=== PATIENT | female | born 1955 | race Caucasian/White ===

== ENCOUNTER 2016-03-03 06:13 | Inpatient (IN) | payer OTHER ==
[~2016-03-03] VITALS: Ht 167.6 cm; Wt 71.0 kg
[2016-03-03] VITALS (15 sets, daily range): BP systolic 107–160; BP diastolic 60–88; PULSE 75–95; RESP 4–17; O2SAT 93–100
[2016-03-03] MEDS: Lactated Ringer's 1,000 ML IV SCH ×4 (05:00→09:59)
[~2016-03-03 06:13] MED LIST: CYCL10TA9 PO; CeFAZolin 2 Gm/50 mL D5W IV Premix IV ONE; FOLI-52 PO; LEVO750T39 PO; METR500T19 PO; NITR0.4T6 SL; TRAM50TA2 PO; metroNIDAZOLE Inj 500 MG in IV Premix 1 EACH IV ONE
[2016-03-03] MEDS ORDERED: Ondansetron 2 mg/mL 2 mL Inj ONE ×2 (06:39→16:39)
[2016-03-03] MEDS ORDERED: Ondansetron 2 mg/mL 2 mL Inj IVPUSH ONE (08:20)
--- NOTE | 2016-03-03 08:28 | PCM.HPANE ---
Patient Data Surgeon Admitting Provider: Attending Provider:Kristi Viveros MD Primary Care Physician:Maged Guzman MD Other Provider: Reason for Visit Diverticulitis Ht/WT & BMI Height (Feet): 5 Height (Inches): 6 Weight (Kilograms): 70.6 Body Mass Index 25.00 Allergies Coded Allergies: latex (Verified Allergy, Intermediate, rash/blisters, 04/16/15) Cultivated Oat Pollen (Verified Allergy, Unknown, 03/02/16) TAPE (Verified Allergy, Unknown, 03/02/16) Past Anesthesia History Anesthesia History: Positive for:: Anesthesia Reactions (NAUSEATED), Denies:: Abnormal Airway, Difficult Intubation, Fam Anesthesia Reaction, Fam Malignant Hypertherm, Malignant Hyperthermia Diabetes History Hx Diabetes?: No MRSA MRSA: Yes Medications Home Meds Incl Beta Lui: No Reported Medications Tramadol 50 Mg Opwyvr99 Mg PO Q4H PRN For Pain Ref 0 03/02/16 Metronidazole 500 Mg Nmutlz427 Mg PO TID Ref 0 03/02/16 Nitroglycerin SL 0.4 Mg Tab.subl0.4 Mg SL 03/02/16 Levofloxacin 750 Mg Xpkrjr814 Mg PO DAILY 03/02/16 Multivitamin/Iron/Folic Acid (Centrum Complete Multivit Tab)1 Each Tablet1 Each PO DAILY 04/16/15 Cyclobenzaprine 10 Mg Trhvbx63 Mg PO TID PRN Spasm 01/14/15 Discontinued Reported Medications Tizanidine 4 Mg Tablet4 Mg PO TID 03/02/16 hydrOXYzine Hcl (HydrOXYzine Hcl)25 Mg Rlixna75 Mg PO TID PRN For Itching Ref 0 03/02/[address] 40 Mg Tablet.dr40 Mg PO BID Ref 0 04/16/15 HydrOXYzine HCl 10 Mg Ofipmx05 Mg PO TID PRN For Itching Ref 0 04/16/15 Dicyclomine (Bentyl)10 Mg Ndtlghp90 Mg PO 04/16/15 Trazodone 50 Mg Gtbrvf47 Mg PO HS Ref 0 01/14/15 Omeprazole 20 Mg Capsule.dr20 Mg PO DAILY Ref 0 01/14/15 Nitroglycerin 0.4 mg/hr Patch 1 Each Patch0.4 Mg TRANSDERM DAILY 01/14/15 History History of ENT Problems?: No HEENT History: Denies:: Abnormal Airway Difficult Intubation Dysphagia Hearing Problem Other History/Comment No recent palpitations. Reports h/o paroxysmal cardiac palpitations that do not stop her activity and resolve spontaneously Hx of Heart Problems?: Yes Cardiovascular History: Positive for:: Coronary Artery Disease (HYPERLIPEDEMIA ) Irregular Heartbeat (HX PALPATATIONS, RULED OUT TO BE BENIGN) Denies:: AICD Atrial Fibrillation Chest Pain Hypertension Pacemaker Valvular Heart Disease Hx of Respiratory Problem?: No Respiratory History: Denies:: Asthma COPD Cough Hemoptysis Pneumonia Tuberculosis Neurological History: Positive for:: Dizziness (ONCE IN A WHILE) Denies:: CVA Hx of GI Problems?: Yes Gastrointestinal History: Positive for:: Diverticulitis Gastroesphageal Reflux Hiatal Hernia Denies:: Cirrhosis Rectal Bleeding Hx of Problems?: Yes Female Hx: Positive for:: Endometriosis (UTERINE FIBROID) Denies:: Currently Problems with Breasts? Skin History: Denies:: History Skin Disorders? Pressure Ulcers Hx Musculoskeletal Problems?: Yes Musculoskeletal History: Positive for:: Degenerative Joint (INTERVERTEBRAL DISC DISORDER) Fibromyalgia Musculoskeletal Trauma (TROCHANTERIC BURSITIS) Denies:: Joint Replacement Psycho Social History: Denies:: Anxiety Hx Depression Hx Surgeries?: Yes (HERNIA REPAIR, Schotsky's ring stretched x2, acid reflux surgery) Hx Any Other Health Problems?: Yes Other History: Denies:: Cancer History Blood Transfusions: Positive for:: Accept Blood Products? Denies:: Blood Transfusions Hx Diabetes: No Hx Alcohol Use: No Smoking Status: Never Smoker Stop/Bang S-Snoring: Do You Snore Loudly: No T-Tired: feel tired, fatigued: No O-Obsered: Observed not breath: Yes P-Blood Pressure: treated: No B- Body Mass Index > 35 kg/m2: No A- Age over 50: Yes N- Neck Large Circumference: No G- Gender Male: No DORIS Total Score: 2 DORIS Risk Assessment: Low Risk, <3 Yes Risk Assessment Category Category 1A: Patient has history of documented sleep apnea, and HAS NOT received any narcotic, sedative or anesthesia administration during this stay. Category 1B: Patient has history of documented sleep apnea, and HAS received any narcotic , sedative or anesthesia administration during this stay Category 2: Patient has SUSPECTED Obstructive Sleep Apnea, and HAS received any narcotic , sedative or anesthesia administration during this stay. Category 3: Patient has SUSPECTED Obstructive Sleep Apnea and HAS NOT received narcotic, sedative or anesthesia administration during this stay. Category 4: Outpatient in Procedural Areas with known sleep apnea or who screen positive for High Risk via the STOP/BANG questionnaire. Exam Exam Vital Signs Vital Signs Date Time Temp Pulse Resp B/P Pulse Ox O2 Delivery O2 Flow Rate FiO2 03/03/16 07:01 35.3 75 16 129/79 100 Room Air General Appearance: Alert, Oriented X3, Cooperative, No Acute Distress HEENT/AIRWAY: MP 1 Lungs: Normal Air Movement Heart: Exam Unremarkable Meds/Labs/Diagnostics Admission Meds Current Medications Lactated Ringer's (Lr) 1,000 ml @ 120 mls/hr Q8H20M IV Last administered on 06:18; Start 03/03/16 at 05:00; Stop 03/03/16 at 13:19 Gabapentin (Neurontin) 600 mg PREOP ONCE PO Last administered on 03/03/16 07: 11; Start 03/03/16 at 06:00; Stop 03/03/16 at 06:01; Status DC Celecoxib (CeleBREX) 200 mg PREOP ONCE PO Last administered on 03/03/16 07:11 ; Start 03/03/16 at 06:00; Stop 03/03/16 at 06:01; Status DC Scopolamine (Transderm-Scop Patch) 1.5 mg ONCE ONCE TOPICAL Last administered on 03/03/16 06:45; Start 03/03/16 at 05:00; Stop 03/03/16 at 05:01; Status DC Acetaminophen (Tylenol) 650 mg PREOP ONCE PO Last administered on 03/03/16 07 :11; Start 03/03/16 at 06:00; Stop 03/03/16 at 06:01; Status DC Ondansetron HCl (Zofran Inj) 4 mg STK-MED ONCE .ROUTE Last administered on 03/03 06:54; Start 03/03/16 at 06:39; Stop 03/03/16 at 06:40; Status DC Plan Impression Patient chart reviewed, patient interviewed and anesthestic plan with risks, benefits, and alternatives discussed, and informed consent obtained. NPO Status: 03/01/16 ASA Physical Status: ASA2 Mod Systemic Disease Anesthetic Plan: GA Bene/Risks/Altern/Consents: Yes HP Complete Prior to Induction: Yes Esequiel Astudillo MD Mar 03, 2016 08:28
[2016-03-03] MEDS ORDERED: Bupivacaine-MPF 0.5% W/EPI 30 mL Inj INFILTRATE ONE (09:02)
[2016-03-03] MEDS ORDERED: Lactated Ringer's 500 ML IV PRN (09:09)
[2016-03-03] MEDS ORDERED: Lactated Ringer's 1,000 ML IV SCH (09:09)
[2016-03-03] MEDS ORDERED: Dexamethasone 4 mg/mL Inj IVPUSH PRN (09:10)
[2016-03-03] MEDS ORDERED: EPHEDrine Sulfate 50 mg/mL Inj IVPUSH PRN (09:10)
[2016-03-03] MEDS ORDERED: EPHEDrine Sulfate 50 mg/mL Inj IM PRN (09:10)
[2016-03-03] MEDS ORDERED: Atropine 0.4 mg/mL Inj IVPUSH PRN (09:10)
[2016-03-03] MEDS ORDERED: Ondansetron 2 mg/mL 2 mL Inj IVPUSH PRN (09:10)
[2016-03-03] MEDS ORDERED: MetoCLOpramide 5 mg/mL 2 mL Inj IVPUSH PRN (09:10)
[2016-03-03] MEDS ORDERED: HYDROmorphone 1 mg/mL Inj IVPUSH PRN (09:10)
[2016-03-03] MEDS ORDERED: Phenylephrine 10,000 mCg/mL Inj IVPUSH PRN (09:10)
[2016-03-03] MEDS ORDERED: fentaNYL-PF 50 mCg/mL 2 mL Inj IVPUSH PRN (09:10)
[2016-03-03] MEDS ORDERED: hydrOXYzine Inj 25 MG/1 mL SDV IM PRN (09:10)
[2016-03-03] MEDS ORDERED: Lactated Ringer's 1,000 ML IV ONE ×2 (11:30→14:30)
--- NOTE | 2016-03-03 11:46 | OP ---
[address] [address] OPERATIVE REPORT PATIENT: ASIM CHO : 1955 MR#: [id number] ADMIT: 03/03/2016 JOB ID: [id number] DATE OF SURGERY: 03/03/2016 PREOPERATIVE DIAGNOSIS(ES): Complicated diverticulitis. POSTOPERATIVE DIAGNOSIS(ES): Complicated diverticulitis. OPERATION PERFORMED: 1. Cystoscopy. 2. Placement of bilateral illuminated ureteral stent. SURGEON: Дмитрий Simmons MD ANESTHESIOLOGIST: Esequiel Astudillo MD ANESTHESIA: General. FINDINGS: There was a grade 2 cystocele, moderate atrophic vaginitis, and a small urethral caruncle. Bladder urothelium is normal throughout. Ureteral orifices in normal position bilaterally. The red-labeled illuminated stent was then placed without incident in the right upper collecting system, and the black-labeled illuminated ureteral stent was advanced into the left upper collecting system without incident. The endoscope was then removed, and a 16-Greenlandic silicone catheter was placed, and the illuminated stents were fixed to the silicone catheter with two small OpSite dressings. The Huang was then placed to gravity drainage. Dr. Kristi Viveros then proceeded with her portion of the operative plan, details of which can be found in her operative report.
[2016-03-03 13:47] LABS: BASOPHILS % (AUTO) 0.1 % (0-3); EOSINOPHILS % (AUTO) 0 % (0-5); MONOCYTES % (AUTO) 4.2 % (4-12); Mean Corpuscular Volume 94.7 fL (81-100); NEUTROPHILS % (AUTO) 88.8 % (40-74); Platelet Count 170 bil/L (150-400)
--- NOTE | 2016-03-03 13:53 | PCM.ANEP1 ---
Post Anesthesia Phase 1 PACU Phase 1 Assessment Vital Signs see anesthesia record Vital Signs Date Time Temp Pulse Resp B/P Pulse Ox O2 Delivery O2 Flow Rate FiO2 03/03/16 07:01 35.3 75 16 129/79 100 Room Air Anesthetic Administered: GA Level of Alertness: Sleeping, hard to arouse LEVINE's with Equal Strength: Yes Pain: No Nausea or Vomiting: No Airway Device: Oralpharangeal Airway Oxygen Delivery: Simple Mask Lungs: Normal Air Movement Esequiel Astudillo MD Mar 03, 2016 13:53
--- NOTE | 2016-03-03 14:31 | OP ---
[address] [address] OPERATIVE REPORT PATIENT: ASIM CHO : 1955 MR#: [id number] ADMIT: 03/03/2016 JOB ID: [id number] DATE OF SURGERY: 03/03/2016 PREOPERATIVE DIAGNOSIS(ES): Persistent acute on chronic diverticulitis. POSTOPERATIVE DIAGNOSIS(ES): Persistent acute on chronic diverticulitis. PROCEDURE PERFORMED: 1. Laparoscopic hand-assisted sigmoid colectomy. 2. Laparoscopic takedown of splenic flexure. 3. Pelvic examination under anesthesia. 4. Rigid sigmoidoscopy. SURGEON: Kristi Viveros MD. ASSISTANTS: Suleman Cotter MD; Linda Li PA-C; Jareth Talbot PA-C, Janine Stanley MS-3 Dr. Cotter's assistance was necessary for retraction and dissection, and the presence of the PAs was necessary for completion of the anastomosis. HISTORY OF PRESENT ILLNESS: This is a 60-year-old woman with a history of low abdominal pain, as well as diverticulitis seen on two separate episodes on CT scan. Her diverticulitis had been present for more than one year and was partially responsive, but not entirely, to antibiotics. She had waxing and waning symptoms and had undergone several trials of antibiotics. She had not had any episodes of fistula or abscess associated with it. She did not have inpatient admissions for diverticulitis. Due to her ongoing symptoms only partially responsive to antibiotics, the patient desired sigmoid resection. FINDINGS: 1. Sigmoid diverticulosis. There was no active inflammation. 2. Side-to-end Schwarz anastomosis performed with a 29-mm EEA stapler. DESCRIPTION OF PROCEDURE: The patient was brought to the operating room and placed in supine position. General anesthesia was induced. A warming blanket and SCD were placed. She was repositioned into lithotomy. Ureteral stents were placed by Дмитрий Simmons MD. Please see his separate dictation for this. Lighted stents were used. Of note, the patient had requested a pelvic exam to be performed in the operating room due to findings of some intravaginal nodules that she had found on self examination. Her primary care provider had not seen any abnormalities on previous pelvic examination in the days leading up to surgery. A pelvic exam was performed, and she was found to have two 5-mm nodules on the posterior wall of the distal vagina. The on-call watch technician was called who recommended outpatient evaluation. The operative field was then prepped and draped in a sterile fashion. Antibiotics were infused. A preprocedural pause was performed to confirm the correct patient, procedure, and site. Due to the patient's history of surgery through two separate vertical midline incisions, a left upper quadrant Veress needle was used for insufflation. A 5-mm port was placed using an Optiview trocar at that site. A left lower quadrant 5-mm port was placed. There were several adhesions to the lower aspect of the vertical midline incision which were taken down laparoscopically. A 7-cm vertical midline incision was then made, and a HandPort was placed. An additional 5-mm port was placed just superior to the HandPort, and another to the right of the HandPort in the right lower quadrant. Attention was turned to takedown of the splenic flexure. The small bowel was moved to the right and the left colon mesentery was exposed. The inferior mesenteric vein was identified, as well as the left colic artery and ligament of Treitz. The ligament of Treitz was taken down and the inferior mesenteric vein was isolated. The right and left ureters were easily identified due to the presence of lighted stents. A retroperitoneal plane was developed posterior to the IMV and anterior to the ureters. The IMV was then taken with the LigaSure device. The retroperitoneal plane was dissected bluntly to the lateral abdominal wall. Attention was then turned to the transverse colon. The omentum was reflected cephalad and a plane was created between the colon and omentum such that the lesser sac was entered. The omentum was then taken off of the transverse colon with the LigaSure device all the way to the splenic flexure. The splenic flexure was medialized. The white line of Toldt was taken down. The lateral and medial dissection of the splenic flexure was within a contiguous plane. The patient was then positioned in Trendelenburg and the sacral promontory was identified. A retroperitoneal plane was developed from medial to lateral with focus on the STEPHANI. This was isolated and dissected, and ultimately taken with a hemoclip device on the patient's side and LigaSure device on the specimen side. The lateral attachments were taken down with the LigaSure device. Dissection continued distally to the peritoneal reflection, which was also divided with the LigaSure device. A window was made behind the superior rectum. The coalescence of the tenia was identified, and a transection point was chosen below this. A Contour TA stapler was then inserted through the 7-cm incision once the HandPort was removed. The distal transection point again was chosen at a location beyond the coalescence of the tenia. The distal sigmoid colon was then exteriorized, and a proximal transection point was chosen in the midpoint of the left colon, proximal to the inflammatory disease, which was scarred down on the sigmoid colon. Although there was no active inflammation, there was hardening of the epiploica and mesentery around the sigmoid colon, indicative of previous active inflammation. The proximal transection point was then chosen, and it was divided with the Contour TA stapler. The length was checked to make sure that the proximal anastomotic side would reach to the rectal stump. A sizer was inserted into the rectum and a 29-mm EEA stapler was chosen. A Schwarz anastomosis was then decided upon. Two cm from the distal staple line, an enterotomy was made and the anvil was inserted. A pursestring suture was created using a 2-0 PDS stitch. This was then internalized and the HandPort was put back into place, and pneumoperitoneum was reinstated. The EEA stapler was inserted through the rectal stump and the anvil was connected to it. The two ends came together easily and the stapler was fired. The donuts were checked and both were intact. The pelvis was then filled with fluid, and an air leak test was performed by insufflating the rectum with air. There was no sign of leak. It was then suctioned out. The small bowel was then kept over into the right of the left colon to avoid tension on the anastomosis if ileus were to occur postoperatively. The fascia at the 7-cm midline incision was closed with 2-0 PDS. The incision was copiously irrigated. Then, 0.5% Marcaine with epinephrine was infused at all port sites in the midline incision. The port sites and midline incision were all closed with running 4-0 Monocryl. Sterile dressings were placed. The patient tolerated the procedure well. She was awakened from general anesthesia and taken to the postoperative care unit in good condition. ESTIMATED BLOOD LOSS: 10 mL. COMPLICATIONS: None. SPECIMENS: Sigmoid colon and proximal rectum, 27 cm in length, sent for final pathology. [facility]
--- NOTE | 2016-03-03 15:08 | PCM.ANEP2 ---
Post Anesthesia Evaluation ASA/CMS Post Anesthesia VS in Patient's Normal Range?: Yes Resp Stable; Airway Patent?: Yes CV Function & Hydration Stable: Yes Mental Status Recovered?: Yes Pain control Satisfactory?: Yes N/V Control Satisfactory?: Yes Esequiel Astudillo MD Mar 03, 2016 15:08
[2016-03-03] MEDS ORDERED: Rocuronium 10 mg/mL 5 mL Inj ONE (16:39)
[2016-03-03] MEDS ORDERED: Propofol 10,000 mCg/mL 20 mL Inj ONE (16:39)
[2016-03-03] MEDS ORDERED: HYDROmorphone 2 mg/mL Inj ONE (16:39)
[2016-03-03] MEDS ORDERED: Dexamethasone 4 mg/mL Inj ONE (16:39)
[2016-03-03] MEDS ORDERED: fentaNYL-PF 50 mCg/mL 2 mL Inj ONE (16:39)
[2016-03-03] MEDS ORDERED: Insulin Human REGular Inj 100 UNIT in 0.9% Sodium Chloride-Pha MIX 100 ML IV SCH (17:06)
[2016-03-03] MEDS: HYDROmorphone 0.5 mg/0.5 mL iSecure Syringe IVPUSH PRN ×3 (17:15→21:54)
[2016-03-03] MEDS: Dextrose 5% Lactated Ringer's 1,000 ML IV SCH (17:29)
--- NOTE | 2016-03-03 18:15 | NUR ---
Admit to OSC Pt transferred to OSC from PACU [id number] hrs. Pt drowsy but oriented x 3 and easily awakened. VSS. PIV asymptomatic and intact. Lap site dressings clean, dry, and intact. Pt c/o "belly" pain. Pt on high-flow oxygen 15 lpm via nonrebreather mask until 1930 hrs (for total of 6 hours), then can transition to 2 lpm via nasal cannula. Pt oxygen saturation currently at 99-100%. Personal possessions placed in closet in pt's room. Care continues.
[2016-03-03] MEDS: Heparin 5,000 Unit/mL Inj SUBQ SCH (18:28)
[2016-03-03] MEDS: Acetaminophen IV 1,000 MG in IV Premix 1 EACH IV SCH (18:28)
[2016-03-04] MEDS: Heparin 5,000 Unit/mL Inj SUBQ SCH ×3 (00:27→17:36)
[2016-03-04] MEDS: Acetaminophen IV 1,000 MG in IV Premix 1 EACH IV SCH ×5 (00:29→20:30)
[2016-03-04] MEDS: HYDROmorphone 0.5 mg/0.5 mL iSecure Syringe IVPUSH PRN ×3 (02:53→11:26)
[2016-03-04 05:02] VITALS: BP 94/61; PULSE 76; RESP 16; O2SAT 100
[2016-03-04 06:03] LABS: BASOPHILS % (AUTO) 0.1 % (0-3); EOSINOPHILS % (AUTO) 0 % (0-5); MONOCYTES % (AUTO) 6.9 % (4-12); Mean Corpuscular Volume 94.9 fL (81-100); NEUTROPHILS % (AUTO) 71.1 % (40-74); Platelet Count 167 bil/L (150-400)
[2016-03-04] MEDS ORDERED: 0.9% Sodium Chloride 250 ML ONE (06:30)
[2016-03-04 06:59] VITALS: BP 113/70; PULSE 72; RESP 19; O2SAT 100
--- NOTE | 2016-03-04 07:20 | NUR ---
Huang d/c Huang d/c this morning as ordered. Pt. tolerated procedure well. 10cc of saline taken out of balloon.
--- NOTE | 2016-03-04 08:22 | PCM.PNSURG ---
Subjective Visit Information: Reason for Visit Diverticulitis Surgery/Surgery Date Post-Op Day # Date of Admission: Mar 03, 2016 at 16:38 Hospital Day # Subjective: Stable overnight. Has not ambulated yet. Labs OK. Vitals OK. c/o pain. Blood sugar 130s, 120s at midnight and this am Objective Vital Sign- Last 8 Hours Date Time Temp Pulse Resp B/P Pulse Ox O2 Delivery O2 Flow Rate FiO2 03/04/16 06:59 36.7 72 19 113/70 100 OxyMask 2.00 03/04/16 05:02 36.8 76 16 94/61 100 OxyMask 3.00 03/04/16 00:35 Supplement Oxygen Intake and Output- Last 8 Hour 03/04/16 Cumulative From/Thru 07:00 03/02/16 14:22 - 03/04/16 05:00 Intake Total 0 ml 3550 ml Output Total 800 ml 960 ml Balance -800 ml 2590 ml Intake Oral 0 ml 0 ml IV Total 3550 ml Output Urine Total 800 ml 950 ml Estimated Blood Loss 10 ml # Bowel Movements 0 0 General: Oriented X3, Cooperative, No Acute Distress Abdomen: Soft, Appropriately tender Result Diagram: 03/04/16 0534 03/04/16 0534 Assessment & Plan Impression 60yof POD#1 laparoscopic sigmoid colectomy. Problems: Plan Full liquid diet MIVF until taking adequate PO Ambulate TID Home meds Minimize narcotics Miralax Heparin TID Huang is out. Kristi Viveros MD Mar 04, 2016 08:22
[2016-03-04] MEDS: Dextrose 5% Lactated Ringer's 1,000 ML IV SCH ×2 (08:50→20:21)
--- NOTE | 2016-03-04 11:06 | NUR ---
Social Work Screen Note: SW met with patient at bedside to discuss discharge plan. Patient is a 60 year old female admitted on 03/03/16 for diverticulitis. Patient payer as [employer] 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 Patient PCP as MD Guzman. Patient states residing with Buddy, in [facility]. Patient states pharmacy of choice as [facility]. Patient has no HHC, SNF, DME, or AD history. SW provided patient with AD form for completion. Patient states having no identified discharge needs at this time and states Buddy to assist with care needs at home. SW to follow pending further clinical course. PLAN: Home with , via POV, pending clinical course. SW to follow Shyam ARAGON
[2016-03-04] MEDS ORDERED: HYDROmorphone 2 mg/mL Inj IVPUSH PRN (12:17)
[2016-03-04] MEDS: Polyethylene Glycol (PEG) 17 Gm Powder PO SCH (12:53)
[2016-03-04 14:26] VITALS: BP 100/65; PULSE 83; RESP 16; O2SAT 99
[2016-03-04] MEDS ORDERED: HYDROmorphone 1 mg/mL Inj IVPUSH PRN ×3 (16:25→21:05)
[2016-03-04] MEDS: Ondansetron 2 mg/mL 2 mL Inj IVPUSH PRN ×2 (17:14→18:34)
--- NOTE | 2016-03-04 17:36 | NUR ---
Pain/Activity/Nausea/Diet Patient reports consistent pain rating 6-8/10. Pain impeding patient ability to ambulate. Intermittent nausea throughout shift. patient finally agreed to antiemetic at 1700. PO intake decreased due to nausea. Diet advanced to full liquids this shift. Will monitor correlation between food and nausea, and pain. PLEASE MAKE SURE PATIENT RECEIVES IMPACT NUTRITION DRINK ON ALL TRAYS!!!
[2016-03-04 19:45] VITALS: BP 124/76; PULSE 99; RESP 17; O2SAT 98
[2016-03-04] MEDS ORDERED: 0.9% Sodium Chloride 100 ML ONE (20:11)
[2016-03-04] MEDS: MetoCLOpramide 5 mg/mL 2 mL Inj IVPUSH PRN (20:21)
[2016-03-04] MEDS ORDERED: Ondansetron 8 mg ODT Tablet PO PRN (21:05)
[2016-03-04] MEDS ORDERED: Ondansetron 2 mg/mL 2 mL Inj IVPUSH PRN (21:05)
[2016-03-04] MEDS ORDERED: MetoCLOpramide 5 mg/mL 2 mL Inj IVPUSH PRN (21:05)
[2016-03-04 21:30] VITALS: RESP 16; O2SAT 96
[2016-03-04] MEDS: HYDROmorphone PCA 0.2 mg/mL 30 mL Inj - Standard IV PRN (21:31)
[2016-03-04 23:40] VITALS: RESP 16; O2SAT 94
[2016-03-05] VITALS (8 sets, daily range): BP systolic 121–136; BP diastolic 70–86; PULSE 84–107; RESP 16–18; O2SAT 95–100
[2016-03-05] MEDS ORDERED: Alum-Mag Hydrox-Simeth 30 mL Suspension PO PRN (00:45)
[2016-03-05] MEDS: Heparin 5,000 Unit/mL Inj SUBQ SCH ×4 (00:58→23:50)
[2016-03-05] MEDS: Acetaminophen IV 1,000 MG in IV Premix 1 EACH IV SCH ×2 (02:09→08:11)
--- NOTE | 2016-03-05 05:41 | NUR ---
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 Very hypoactive bowel tones, mild distension, tender abdomen. Tylenol doses adjunct for pain management. Intermittent nausea improved with Zofran. Hourly rounding ongoing.
[2016-03-05] MEDS: MetoCLOpramide 5 mg/mL 2 mL Inj IVPUSH PRN (06:07)
--- NOTE | 2016-03-05 07:36 | PCM.PNSURG ---
Subjective Visit Information: Reason for Visit Diverticulitis Surgery/Surgery Date CYSTOSCOPY/URETERAL STENT 03/03/16 Post-Op Day # Date of Admission: Mar 03, 2016 at 16:38 Hospital Day # Subjective: Stable overnight. PO ~350mL. Taking Impact. Has not walked in halls yet. c/ o incisional pain. No N/V but getting Zofran to prevent it. No flatus or BM. Adequate UOP. Objective Vital Sign- Last 8 Hours Date Time Temp Pulse Resp B/P Pulse Ox O2 Delivery O2 Flow Rate FiO2 03/05/16 06:12 16 95 03/05/16 05:03 36.5 90 17 121/70 96 Room Air 03/05/16 02:05 16 95 03/04/16 23:40 16 94 Intake and Output- Last 8 Hour 03/05/16 Cumulative From/Thru 07:00 03/02/16 14:22 - 03/05/16 06:12 Intake Total 1040 ml 6798 ml Output Total 900 ml 2160 ml Balance 140 ml 4638 ml Intake Oral 0 ml 360 ml IV Total 1040 ml 6438 ml Output Urine Total 900 ml 2150 ml Estimated Blood Loss 10 ml # Bowel Movements 0 0 General: Alert, Oriented X3, Cooperative, No Acute Distress Abdomen: Soft, Appropriately tender, Non-distended, Other (incisions c/d/i) Result Diagram: 03/04/16 0534 03/04/16 0534 Assessment & Plan Impression POD#2 laparoscopic sigmoid colectomy Problems: Plan Ambulate TID Continue full liquid diet Continue slow rate MIVF until taking more PO. Continue Impact. Await return of bowel function. Kristi Viveros MD Mar 05, 2016 07:36
[2016-03-05] MEDS: Dextrose 5% Lactated Ringer's 1,000 ML IV SCH (08:11)
[2016-03-05 08:40] LABS: Mean Corpuscular Hemoglobin 31.4 pg (27.0-35.0)
[2016-03-05] MEDS: Polyethylene Glycol (PEG) 17 Gm Powder PO SCH (12:00)
--- NOTE | 2016-03-05 14:57 | PATH ---
SURGICAL PATHOLOGY Attending Physician:Kristi Viveros MD CASE STATUS: Signed Out PATIENT NAME: ASIM CHO PID: [id number] : 1955 DATE COLLECTED:03/03/2016 23:01 SPECIMEN: Colon, Segment Resection, Non-Tumor CLINICAL HISTORY: DIVERTICULITIS 1). SIGMOID COLON, SUTURE ON DISTAL END FINAL DIAGNOSIS: Sigmoid Colon Resection Specimen (22 cm): Diverticulosis with focal areas of chronic diverticulitis. Negative for significant atypia and malignancy. ICD10: K57 GROSS DESCRIPTION: The specimen is received in formalin, labeled with the patient's name, sublabeled as sigmoid colon/suture distal and consists of a segment of colon (length-22.0 cm, proximal diameter-2.5 cm, distal diameter-2.5 cm) with attached mesentery (up to 10.5 cm in depth). The specimen is oriented with a black suture indicating the distal end. The mucosa is mora with compact distorted folds containing diffuse diverticuli. No nodules masses or lesions are identified. Ink code: black-resection margin. Section code: (A) proximal resection margin, longitudinally sectioned, sales representative trainee; (B) distal resection margin, longitudinally sectioned, sales representative trainee; (C-H) colon segment, serially sectioned proximal to distal, sales representative trainee. 03/04/16 ICD-9 CODES: CPT CODES: 1: 29413 Electronically Signed Out Dylan Ojeda MD [facility] Pathology [facility] [address], [place] [address] Technical component performed at [facility], [address] [place] [address] Ave[address], [place], [address]
--- NOTE | 2016-03-05 16:42 | NUR ---
Ambulation/ GI/ Pt up ambulated X2 today with spouse, she had to be reminded to stand up straight. Pt then had a BM that was clear and a big "gush" and her abdomen felt less crampy and less painful post BM. Pt also has had light pink urine this morning and darker red urine this evening. aware and states that pt had two stents taken out and its ok to have pink to red urine for the next few days.
[2016-03-06 01:07] VITALS: RESP 16; O2SAT 98
--- NOTE | 2016-03-06 03:40 | NUR ---
Pain Pt's pain is well controlled with FOOD AIDE. Pt. rates pain is 5/10 which is comfortable for her. Pt. has spikes in pain with movement. Will continue to monitor.
[2016-03-06] MEDS: HYDROmorphone PCA 0.2 mg/mL 30 mL Inj - Standard IV PRN (05:19)
[2016-03-06 06:28] VITALS: RESP 16; O2SAT 99
--- NOTE | 2016-03-06 08:13 | PCM.PNSURG ---
Subjective Visit Information: Reason for Visit Diverticulitis Surgery/Surgery Date CYSTOSCOPY/URETERAL STENT 03/03/16 Post-Op Day # Date of Admission: Mar 03, 2016 at 16:38 Hospital Day # Subjective: had another liquid BM early this am but denies air coming out with it; no n/v, feels ok to switch to po pain med; reports some blood with urination Objective Objective Awake in bed Abd: nondistended, soft, incisions clean with steristrips Vital Sign- Last 8 Hours Date Time Temp Pulse Resp B/P Pulse Ox O2 Delivery O2 Flow Rate FiO2 03/06/16 06:28 16 99 03/06/16 01:07 16 98 Intake and Output- Last 8 Hour 03/06/16 Cumulative From/Thru 07:00 03/02/16 14:22 - 03/06/16 06:19 Intake Total 1050 ml 9575 ml Output Total 1500 ml 5460 ml Balance -450 ml 4115 ml Intake Oral 638 ml 1841 ml IV Total 412 ml 7734 ml Output Urine Total 1500 ml 5450 ml Estimated Blood Loss 10 ml # Bowel Movements 1 1 Result Diagram: 03/05/16 0800 03/05/16 0800 Assessment & Plan Impression POD #3 s/p lap sigmoid resection Problems: Plan Switch to po percocet Diet as tolerated Ambulate Zi Calix MD Mar 06, 2016 08:13
[2016-03-06 08:25] VITALS: RESP 16; O2SAT 94
[2016-03-06] MEDS: Heparin 5,000 Unit/mL Inj SUBQ SCH ×2 (08:26→16:19)
[2016-03-06] MEDS: Polyethylene Glycol (PEG) 17 Gm Powder PO SCH (08:27)
--- NOTE | 2016-03-06 11:41 | NUR ---
PAIN/GI Prior to breakfast, c/o mild abdominal pain 04/16. Ate small amount of breakfast, then stated her abdomen started to feel cramping like pain. Now @ 08/16. ARMOURED CAR ESCORT dilaudid was discontinued. Medicated with oxycodone 5mg. Also states liquid stool x3 this morning. Reports no flatus. Continue to monitor patient
[2016-03-06 13:57] VITALS: BP 112/71; PULSE 95; RESP 17; O2SAT 99
--- NOTE | 2016-03-06 14:07 | NUR ---
NUTRITION ASSESSMENT: ASSESS:60 YO female admitted with diverticulitis; POD #3 following lap sigmoid resection, per SCOAP protocol. Diet advanced to soft with Impact Advanced Recovery all trays. PO intake 25% - 50% trays currently, advancing to general by nursing as tolerated. PMHx:CAD, MRSA, diverticulitis, hiatal hernia, endometriosis, fibromyalgia. DIET:Soft + Impact Advanced Recovery. PO intake 25% - 50% trays. LABS: Reviewed. BUN 7, Glu 112. MEDICATIONS: Reviewed. MVI. NUTRITION FOCUSED PHYSICAL ASSESSMENT: GI symptoms / stool: BM x 1 (liquid) today.Danis: 20. Skin Integrity: No issues reported. ANTHROPOMETRICS: Current Wt: 71.0 kgBMI: 25.0 kg/m2.Admit weight: 75.11 kg IBW: 59.1 kg (127.1% IBW) ESTIMATED NEEDS (SURGERY, OVERWEIGHT): Calories: 1773 - 2068 kcal (30 - 35 kcal / kg IBW) Protein: 106 - 148 g protein (1.8 - 2.5 g / kg IBW) Fluids: Approx 1773 ml (30 ml / kg IBW) NUTRITION DIAGNOSIS: 1)Increased nutrient needs related to GI surgery, requiring Impact Advanced Recovery, per SCOAP protocol. INTERVENTION: 1) Continue to add Impact to trays. MONITOR/EVALUATE: Diet advance / tolerance, PO intake, labs, GI/nutrition status. Follow up per moderate nutrition risk guidelines.
[2016-03-06] MEDS: Lactated Ringer's 1,000 ML IV SCH (22:17)
[2016-03-06] MEDS: Ondansetron 2 mg/mL 2 mL Inj IVPUSH PRN (22:17)
[2016-03-06 22:30] VITALS: BP 118/75; PULSE 79; RESP 18; O2SAT 100
[2016-03-07] MEDS: Heparin 5,000 Unit/mL Inj SUBQ SCH ×3 (00:55→17:22)
[2016-03-07 05:22] LABS: Mean Corpuscular Hemoglobin 31.2 pg (27.0-35.0); Mean Corpuscular Volume 94.2 fL (81-100)
[2016-03-07 05:39] VITALS: BP 103/62; PULSE 79; RESP 18; O2SAT 97
--- NOTE | 2016-03-07 06:42 | NUR ---
Bloody urine / fluids Pt continues to have bloody urine. Red medium amount of blood in urine with each void. Pt voiced concern regarding that fact that the fluid were discontinues and her urine output has dropped drastically; her urine is darker and she is concerned about the bleeding as well as a clot forming in her bladder. paged and aware. Restart fluids as prior. Order Labs CBC CMP. and add nausea medications. Care continues
--- NOTE | 2016-03-07 08:23 | PCM.PNSURG ---
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, in room ; urine is still bloody Objective Objective Awake in bed, just woke up Abd: nondistended, benign, incisions clean Vital Sign- Last 8 Hours Date Time Temp Pulse Resp B/P Pulse Ox O2 Delivery O2 Flow Rate FiO2 03/07/16 05:39 36.8 79 18 103/62 97 Room Air Intake and Output- Last 8 Hour 03/07/16 Cumulative From/Thru 07:00 03/02/16 14:22 - 03/07/16 06:31 Intake Total 1282 ml 63242 ml Output Total 740 ml 7055 ml Balance 542 ml 4660 ml Intake Oral 500 ml 3141 ml IV Total 782 ml 8574 ml Output Urine Total 740 ml 7040 ml Stool Total 5 ml Estimated Blood Loss 10 ml # Bowel Movements 1 Result Diagram: 03/07/16 0507 03/07/16 0507 Assessment & Plan Impression POD #4 s/p lap sigmoid resection Problems: Plan Diet as tolerated OOB/ambulate Pain control Possible home tomorrow Zi Calix MD Mar 07, 2016 08:23
[2016-03-07] MEDS: Ondansetron 2 mg/mL 2 mL Inj IVPUSH PRN ×2 (08:35→12:16)
[2016-03-07] MEDS: Lactated Ringer's 1,000 ML IV SCH ×2 (08:35→17:50)
[2016-03-07] MEDS: HYDROmorphone 1 mg/mL Inj IVPUSH PRN ×2 (09:36→16:30)
[2016-03-07] MEDS: Polyethylene Glycol (PEG) 17 Gm Powder PO SCH (12:12)
[2016-03-07 13:02] VITALS: BP 125/82; PULSE 85; RESP 17; O2SAT 97
--- NOTE | 2016-03-07 15:22 | NUR ---
Social Work: Brief Note Data & Assessment: EMR Reviewed. Patient is a 60 y/o female on her fourth day of hospitalization. Patient is not medically ready for discharge. 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 Dr. Zi carrizales documented that the patient ay be ready for discharge on tomorrow. SW will continue to follow. Plan: It is likely that patient will discharge home no needs via POV. SW will continue to follow. Chelsie Li LMSW
--- NOTE | 2016-03-07 16:06 | NUR ---
PAIN Patient c/o sharp R side abdominal pain in addition to lower abdominal pain she has been having. Medicated with oxycodone 10mg, no relief noted after 1.5 hrs. Administered IV dilaudid to assist with pain mgmt. Patient stated the extra IV pain medication helped until the pain medication kicked in and after reassessment, pain was down to 4/10, which is tolerable for her. Encouraged patient to ambulate in hallways to help with pain and to assist with bowels.
[2016-03-07 20:10] VITALS: BP 115/73; PULSE 78; RESP 16; O2SAT 99
[2016-03-08] MEDS: Heparin 5,000 Unit/mL Inj SUBQ SCH ×2 (00:43→08:36)
[2016-03-08] MEDS: HYDROmorphone 1 mg/mL Inj IVPUSH PRN (00:43)
--- NOTE | 2016-03-08 03:17 | NUR ---
Pain / Urine Pt c/o right posterior back pain as well as anterior low ABD pain. 4-08/16. APAP and Louann 10mg seems to work most of the time for pain although this morning pts pain was not controlled and she needed Dilaudid as well as Flexeril to help control pain. Urine continues to be medium dark pink with blood. MD is aware. Care continues
[2016-03-08] MEDS: Lactated Ringer's 1,000 ML IV SCH (03:50)
[2016-03-08 05:40] VITALS: BP 120/76; PULSE 86; RESP 16; O2SAT 98
--- NOTE | 2016-03-08 07:31 | PCM.DISURG ---
Surgical Discharge Instruction Date of Service Mar 08, 2016 Dates of Hospitalization Date of Hospital Admission Mar 03, 2016 at 16:38 Providers Admitting Physician: Kristi Viveros MD Primary Care Physician: Maged Guzman MD Attending Physician: Kristi Viveros MD Discharge Diagnosis Discharge Diagnosis Diverticulitis Diet Discharge Diet: No restrictions Activity Discharge Activity-General: Be up and about, No lifting >10 pounds for 4-6 weeks Dressing and Incisional Care Dressing Care: Allow Steri Stripes to fall off Hygiene: May shower Additional Instructions Additional Instructions Take tylenol around the clock until off oxycodone. OK to take an extra dose of Miralax if needed. No suppositories/enemas. Follow Up Plan Follow Up Plan F/U with Dr. Viveros in 1-2 weeks. Call your provider for: Fever, Chills, Shortness of breath, Nausea, Wound redness, Increasing wound pain, Warmth to touch, Discharge @ incision, pus discharge Kristi Viveros MD Mar 08, 2016 07:31
[2016-03-08] MEDS ORDERED: CYCL10TA9 PO (07:33)
[2016-03-08] MEDS ORDERED: POLY17PO6 PO (07:33)
[2016-03-08] MEDS ORDERED: Acetaminophen PO (07:33)
[2016-03-08] MEDS ORDERED: OXYC5TAB72 PO (07:33)
--- NOTE | 2016-03-08 07:35 | PCM.PNSURG ---
Subjective Visit Information: Reason for Visit Diverticulitis Surgery/Surgery Date CYSTOSCOPY/URETERAL STENT 03/03/16 Post-Op Day # Date of Admission: Mar 03, 2016 at 16:38 Hospital Day # Subjective: Stable overnight. Insomnia. c/o Incisional pain and left sided pain. BMs recorded for Tue/Tue, none Tuesday. Objective Vital Sign- Last 8 Hours Date Time Temp Pulse Resp B/P Pulse Ox O2 Delivery O2 Flow Rate FiO2 03/08/16 05:40 36.7 86 16 120/76 98 Room Air Intake and Output- Last 8 Hour 03/08/16 Cumulative From/Thru 07:00 03/02/16 14:22 - 03/08/16 05:40 Intake Total 300 ml 00414 ml Output Total 950 ml 9005 ml Balance -650 ml 4812 ml Intake Oral 300 ml 4141 ml IV Total 9676 ml Output Urine Total 950 ml 8990 ml Stool Total 5 ml Estimated Blood Loss 10 ml # Bowel Movements 0 1 General: Alert, Oriented X3, Cooperative, No Acute Distress Abdomen: Soft, Appropriately tender, Non-distended Result Diagram: 03/07/16 0507 03/07/16 0507 Assessment & Plan Impression POD 5 lap sigmoid colectomy for diverticulitis Problems: Plan Stable for discharge today. F/U with me in 2 weeks. Will need operating engineer referral as an outpt after surgical recovery for vaginal nodules. Kristi Viveros MD Mar 08, 2016 07:35
--- NOTE | 2016-03-08 07:42 | NUR ---
Urine Urine this AM was xenia yellow as opposed to moderate pink. a few clots of blood but looking much improved since the beginning of shift. Pain mostly controlled with APAP and Roxycodone. Care continues
[2016-03-08] MEDS: Ondansetron 2 mg/mL 2 mL Inj IVPUSH PRN ×2 (08:56→12:40)
--- NOTE | 2016-03-08 08:56 | NUR ---
Nausea Patient reported nausea this AM. 4 mg of ondansetron given. Denies pain at this time. Patient repositions self for comfort. Call light and tray table within reach. Will continue to monitor patient hourly.
--- NOTE | 2016-03-08 13:54 | NUR ---
Discharge Pt left with family in stable condition with all belongings at 1300, IV d/c'd, prescriptions given. called Dr Viveros with pt and families concern about having PO zofran on discharge. She stated she couldn't put the order into the pharmacy for a couple of hour. Pt aware and ok with discharging. Administered one more dose of zofran prior to discharge. instructions given for scheduling follow up appointment.
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
== END 2016-03-08 12:54 | disposition home or self-care (01) | DRG 331 ==
LOC: SAS 06:13 → OSC 16:38
PROVIDERS: ADMIT Surgery; ATTEND Surgery
PROC: 0DTN4ZZ Resection of Sigmoid Colon, Percutaneous Endoscopic Approach (ICD-10-PCS; principal; 2016-03-03 08:30)
DX: K57.32 Diverticulitis of large intestine without perforation or abscess without bleeding (principal); K57.30 Diverticulosis of large intestine without perforation or abscess without bleeding; K21.9 Gastro-esophageal reflux disease without esophagitis; E78.5 Hyperlipidemia, unspecified

== ENCOUNTER 2016-04-14 17:56 | Observation (INO) | payer OTHER ==
[~2016-04-14] VITALS: Ht 167.6 cm; Wt 71.1 kg
[~2016-04-14 17:56] MED LIST changes: +Acetaminophen PO; -CeFAZolin 2 Gm/50 mL D5W IV Premix IV ONE; -LEVO750T39 PO; -METR500T19 PO; +OXYC5TAB72 PO; +POLY17PO6 PO; -TRAM50TA2 PO; -metroNIDAZOLE Inj 500 MG in IV Premix 1 EACH IV ONE
[2016-04-14 18:08] VITALS: BP 150/98; PULSE 11; PULSE 111; RESP 32; O2SAT 100
--- NOTE | 2016-04-14 18:29 | ED.REPORT ---
HPI-Abd Pain F 40 and Over Date of Service Apr 14, 2016 ED Provider: Juna Hicks MD Pt is a 60 y/o female w/ a hx of diverticulitis s/p Laparoscopic hand-assisted sigmoid colectomy on March 03, [address] Viveros presenting to the ED c/o increasing abdominal pain onset earlier today. The patient states was experiencing severe abdominal pain earlier this year which was eventually diagnosed as severe diverticulitis resulting in decision to perform sigmoid colectomy. She is a quite vague historian and seems to change her complaints and history throughout evaluation. She initially states that she is here because she has had constipation and requests she be given GoLYTELY to help with this. She later states that she had a large bowel movement earlier today and that this relieved her pain but that her pain is now returned. She reports diffuse abdominal cramping that is most notable in the left lower quadrant. She states that she is no longer taking any opiate pain medications. Pt denies melena, fever, chills. She is not taking regular pain medications. She reports that she has been eating and drinking much less recently due to nausea and decreased appetite. She records a couple episodes of nonbloody/nonbilious emesis over the last few days. Nursing Notes Stated Complaint: ABDOMEN PAIN Chief Complaint: Female Abdominal Pain Nursing Notes Reviewed: Yes Allergies: Coded Allergies: latex (Verified Allergy, Intermediate, rash/blisters, 04/16/15) Cultivated Oat Pollen (Verified Allergy, Unknown, 03/02/16) TAPE (Verified Allergy, Unknown, 03/02/16) Scheduled Aspirin/Acetaminophen/Caffeine (Doqbzoi-Skthhhsmcxoxb-Leyv Tab) 250 Mg-250 Mg- 65 Mg Tablet 2 EACH PO DAILY Cyanocobalamin (Vitamin B12) 500 Mcg Tablet 1,000 MCG PO DAILY Multivitamin/Iron/Folic Acid (Centrum Complete Multivit Tab) 1 Each Tablet 1 EACH PO DAILY General Time Seen by MD: 18:18 Chief Complaint Abdominal pain Hx Obtained From: Patient, Spouse Arrived By: Walk-in Sudden in Onset?: No Onset Occurred: 5 - 8 hours ago Symptom Duration: Since onset Progression since Onset: Unchanged Location: : Diffuse Quality: Painful Radiation: : Does not radiate Severity: Current: Moderate Severity: Maximum: Moderate Recent Healthcare: Previous diagnosis Similar Sx Previous: Yes Past Medical History Past Medical History hiatal hernia diverticulitis arthritis Past Surgical History hernia repair Schotcky's ring stretched x2 reflux surgery Sigmoidectomy Family History Colon cancer Smoking History Never Smoker Social History Other Social History: Good social support Ambulatory Status Independent Review of Systems Constitutional: Denies: Chills, Fever Respiratory: Denies: Non-productive cough, Shortness of breath Cardiovascular: Denies: Chest pain, Edema GI: Reports: Abdominal pain, Constipation, Nausea, Vomiting Complete sys rev & neg: except as marked. Physical Exam Vital Signs Vital Signs (First) Date Time Temp Pulse Resp B/P Pulse Ox O2 Delivery O2 Flow Rate FiO2 04/14/16 18:08 36. 111 32 150/98 100 Room Air Initial VS: Reviewed, Vital signs abnormal Head / Eyes: Atraumatic, Normocephalic, PERRL ENT: Mucous membranes moist, Conjunctiva normal, No scleral icterus Neck: Supple, Full range of motion Extremities: Vascular intact, Neuro intact, No swelling, No tenderness Skin: Warm, Dry, No cyanosis Neurologic: Alert, Oriented, Nonfocal Psychiatric: Mood/affect normal, Behavior normal, Normal thought content General/Constitutional: Awake, Alert, No acute distress Respiratory / Chest: Atraumatic, Breath sounds NL, Breath sounds = bilat, No respiratory distress, No rales, No rhonchi, No wheezing, No retractions, No stridor, No chest tenderness, No chest wall deformity, No crepitus Cardiovascular: Heart rate NL, Regular rhythm, Heart sounds NL, No gallop, No murmurs, No rubs, Cap refill not delayed, Peripheral circulation NL Abdomen: Atraumatic, Soft, No guarding, No rebound, No palpable mass Well healed midline surgical incision Diffuse tenderness of lower abdomen, most prominent LLQ Back: Full range of motion, Painless range of motion ENT: Atraumatic, Airway patent Mouth: Positive: Mucous membranes dry (mild) Interpretation & Diagnostics Lab Results Interpretation Result Diagram: 04/14/16 1830 04/14/16 183 Test 04/14/16 18:30 04/14/16 20:21 04/14/16 20:23 White Blood Count 18.1th/mm3 (3.8-10.1) Red Blood Count 4.41mil/mm3 (3.90-5.20) Hemoglobin 14.0g/dL (12.0-15.6) Hematocrit 42.3% (35.0-46.0) Mean Corpuscular Volume 95.9fL (81-100) Mean Corpuscular Hemoglobin 31.7pg (27.0-35.0) Mean Corpuscular Hemoglobin Concent 33.1% (32.0-37.0) Red Cell Distribution Width 13.5% (12.3-15.4) Platelet Count 348bil/L (150-400) Neutrophils (%) (Auto) 81.7% (40-74) Lymphocytes (%) (Auto) 13.9% (14-46) Monocytes (%) (Auto) 3.4% (4-12) Eosinophils (%) (Auto) 0.5% (0-5) Basophils (%) (Auto) 0.2% (0-3) Sodium Level 139mEq/L (134-144) Potassium Level 4.4mEq/L (3.5-5.2) Chloride Level 99mEq/L (97-108) Carbon Dioxide Level 21mmol/L (18-29) Blood Urea Nitrogen 19mg/dL (8-27) Creatinine 0.91mg/dL (0.57-1.00) Estimat Glomerular Filtration Rate 90mL/min (>59) Glucose Level 175mg/dL (60-99) Calcium Level 9.4mg/dL (8.5-10.1) Magnesium Level 2.1mg/dL (1.6-2.6) Total Bilirubin 0.2mg/dL (0.0-1.2) Aspartate Amino Transf (AST/SGOT) 24U/L (0-50) Alanine Aminotransferase (ALT/SGPT) 17U/L (0-32) Alkaline Phosphatase 94U/L (25-165) Total Protein 7.8g/dL (6.4-8.4) Albumin 4.4g/dL (3.4-5.0) Lipase 27U/L (13-60) Hold [place] Tube Received (Received) Hold Urine Received (Received) Urine Color Yellow (YELLOW) Urine Appearance Hazy (CLEAR,HAZY) Urine pH 7.0 (5.0-8.0) Urine Specific [place] 1.005 (1.003-1.035) Urine Protein Negativemg/dL (NEG,TRACE) Urine Glucose (UA) Negativemg/dL (NEGATIVE) Urine Ketones Negativemg/dL (NEGATIVE) Urine Occult Blood Negative (NEGATIVE) Urine Nitrite Negative (NEGATIVE) Urine Bilirubin Negative (NEGATIVE) Urine Urobilinogen Normalmg/dL (NORMAL) Urine Leukocyte Esterase Negative (NEGATIVE) Urine RBC 0-2/hpf (0-2) Urine WBC 0-5/hpf (0-5) Urine Epithelial Cells Occasional/hpf (NONE-MOD) Urine Crystals None seen (NONE SEEN) Urine Bacteria Few/hpf (NONE-FEW) Urine Hyaline Casts None/lpf (NONE) Urine Granular Casts None seen (NONE SEEN) Urine Waxy Casts None seen (NONE SEEN) Urine Red Blood Cell Casts None seen (NONE SEEN) Urine White Blood Cell Casts None seen (NONE SEEN) Urine Mucus Present (None Seen) Urine Trichomonas None seen (NONE SEEN) Urine Yeast None (NONE SEEN) Urinalysis Comment None Urine Culture Reflexed Not indicated CT Abd / Pelvis Interpretation IMPRESSION: 1. Mild descending colon thickening, consistent with ischemia, infection, or inflammation. The colon is diffusely fluid filled, which may indicate colitis. 2. Appendix not seen. No evidence of appendicitis. 3. No change in small hiatal hernia. Dictated by: Jany Ordaz M.D. on 04/14/2016 at 19:30 Approved by: Jany Ordaz M.D. on 04/14/2016 at 19:33 Study type: Abdominal CT IV contrast Interpretation / Wet Read by: Interpret - Radiologist Re-Eval/Medical Decision Med Decision/Clinical Course Pt is a 60 y/o female w/ a hx of diverticulitis s/p Laparoscopic hand-assisted sigmoid colectomy on March 03, [address] Viveros presenting to the ED c/o increasing abdominal pain onset earlier today. Here in the emergency department the patient is tachycardic with a heart rate of 111 though his afebrile and otherwise hemodynamically stable. She appears quite uncomfortable and has diffuse tenderness about her entire abdomen that is most notable in the left lower quadrant. She has dry mucous membranes and appears dehydrated. The patient was treated with Zofran for nausea, hydromorphone for pain and IV fluids. Labs notable as below: CBC: Leukocytosis of 18.1, elevated from prior of 6.4. CMP: Unremarkable Lactic acid 3.7 CT scan was obtained as below: 1. Mild descending colon thickening, consistent with ischemia, infection, or inflammation. The colon is diffusely fluid filled, which may indicate colitis. 2. Appendix not seen. No evidence of appendicitis. 3. No change in small hiatal hernia. At this time, I see no evidence of an acute surgical intra-abdominal process such as anastomotic leak or postsurgical abscess/bleeding. The patient's history is quite vague and she initially seems to be complaining of constipation but her CT scan demonstrates findings of colitis. She denies any diarrhea or recent symptoms suggestive of an infectious process. I am unconvinced that this colitis is ischemic in nature though she does have an elevated lactate. After being treated with IV fluids lactic acid improved dramatically. I am unconvinced at this time that this is reflective of acute ischemia of the gut. The patient's elevated lactate and leukocytosis may all be due to her significant underlying dehydration. Patient was discussed with her surgeon Dr. Viveros and will be seen and further evaluated tomorrow morning. Given her thus far unclear clinical picture I feel that she warrants admission for ongoing IV fluids, serial abdominal examinations, repeat laboratory studies and evaluation by her surgeon in the morning. Patient was discussed with the admitting hospitalist transferred in stable condition. Re-Evaluation/Progress : Time of Eval: 20:15 Re-Evaluation/Progress Note: Pt rechecked. Pt informed of need for admission. Pt understands and agrees with plan for admission. All questions addressed. Consultation #1: Referral / Consult Name: Destinee Devine MD Consulted With: Surgeon Call Returned at: 20:15 Concrete Analyst: Will see patient, Agrees with eval, Agrees with plan, Accepts admit Note: Will follow the case Consultation #2: Referral / Consult Name: Sergey Stover MD Consulted With: Hospitalist Call Returned at: 20:22 Concrete Analyst: Will see patient, Agrees with eval, Agrees with plan, Accepts admit Counseled Regarding: Diagnosis, Lab results, Need for admission Discharge & Departure Primary Impression: Colitis Additional Impressions: Dehydration Leukocytosis Leukocytosis type: unspecified Qualified Code: D72.829 - Elevated white blood cell count, unspecified Elevated lactic acid level Status post laparoscopic-assisted sigmoidectomy Disposition: ADMITTED TO HOSPITAL Discharge Condition All VS Reviewed: Yes Condition: Stable Referrals: Maged Guzman MD (PCP) Scribe Attestation Portions of this note were transcribed by Layton Fields. I, Dr. Hicks personally performed the history, physical exam and medical decision-making; I reviewed and confirmed the accuracy of the information in the transcribed note. Signed by Ata Thorne, 04/14/16 - 1899 copies to: Maged Guzman MD, Beck O MD Apr 14, 2016 18:29 LAYTON FIELDS Apr 14, 2016 18:39
[2016-04-14] MEDS ORDERED: Ondansetron 2 mg/mL 2 mL Inj ONE (18:35)
[2016-04-14] MEDS ORDERED: 0.9% Sodium Chloride 1,000 ML IV ONE (18:35)
[2016-04-14] MEDS ORDERED: Ondansetron 2 mg/mL 2 mL Inj IVPUSH ONE (18:35)
[2016-04-14 18:41] LABS: BASOPHILS % (AUTO) 0.2 % (0-3); EOSINOPHILS % (AUTO) 0.5 % (0-5); MONOCYTES % (AUTO) 3.4 % (4-12); Mean Corpuscular Hemoglobin 31.7 pg (27.0-35.0); Mean Corpuscular Volume 95.9 fL (81-100); NEUTROPHILS % (AUTO) 81.7 % (40-74); Platelet Count 348 bil/L (150-400)
[2016-04-14] MEDS: HYDROmorphone 0.5 mg/0.5 mL iSecure Syringe IVPUSH PRN ×2 (18:45→19:19)
[2016-04-14 19:00] LABS: Magnesium 2.1 mg/dL (1.6-2.6)
[2016-04-14 19:14] VITALS: BP 157/85; PULSE 74; RESP 18; O2SAT 98
--- NOTE | 2016-04-14 19:35 | DRSVH ---
PROCEDURE: CT ABDOMEN AND PELVIS WITH CONTRAST ([id number]) INDICATIONS: abd pain, recent sigmoidectomy TECHNIQUE: After the administration of intravenous contrast, 5 mm thick sections acquired from the diaphragm to the symphysis. 5 mm coronal and sagittal reformats were acquired. For radiation dose reduction, the following was used: automated exposure control, adjustment of mA and/or kV according to patient camila cervantes. COMPARISON: [facility], CT, CT ABD PELVIS W CON, 11/26/2015, 18:57. FINDINGS: Image quality: Excellent. ABDOMEN: Lung bases: Lung bases are clear. Heart size is normal. Solid organs: Liver and spleen are normal in size and enhancement. Gallbladder is surgically absent . Biliary system is non dilated. Pancreas enhances normally. No adrenal nodules. Kidneys demonstr ate normal size and enhancement, without hydronephrosis. Peritoneum and bowel: A small hiatal hernia is present. The colon is mildly diffusely distended, and fluid-filled. There is mild focal thickening of the proximal descending colon. Mild thickening of th e remainder of the descending colon. No free fluid or air. Nodes and vessels: No retroperitoneal or mesenteric adenopathy by size criteria. Aorta and inferior vena cava are normal in size. Miscellaneous: No ventral hernias. PELVIS: Genitourinary: Urinary bladder is decompressed. Miscellaneous: No inguinal hernias or adenopathy. Bones: No suspicious bony lesions. No vertebral body compression fractures. IMPRESSION: 1. Mild descending colon thickening, consistent with ischemia, infection, or inflammation. The colon is diffusely fluid filled, which may indicate colitis. 2. Appendix not seen. No evidence of appendicitis. 3. No change in small hiatal hernia. Dictated by: Jany Ordaz M.D. on 04/14/2016 at 19:30 Approved by: Jany Ordaz M.D. on 04/14/2016 at 19:33
[2016-04-14] MEDS ORDERED: Ondansetron 2 mg/mL 2 mL Inj IVPUSH PRN (20:25)
[2016-04-14] MEDS ORDERED: Alum-Mag Hydrox-Simeth 30 mL Suspension PO PRN ×2 (20:25)
[2016-04-14] MEDS ORDERED: Polyethylene Glycol (PEG) 17 Gm Powder PO PRN (20:25)
[2016-04-14 20:28] LABS: APPEARANCE,URINE HAZY (CLEAR,HAZY); COLOR,URINE YELLOW (YELLOW)
[2016-04-14 20:29] LABS: OCCULT BLOOD,URINE NEGATIVE (NEGATIVE); UROBILINOGEN,URINE NORMAL (NORMAL)
[2016-04-14 20:55] VITALS: BP 141/87; PULSE 102; RESP 18; O2SAT 97
[2016-04-14] MEDS ORDERED: ASPI-1148 PO (20:59)
[2016-04-14] MEDS ORDERED: CYAN500 PO (20:59)
[2016-04-14 21:01] VITALS: BP 141/87; PULSE 102; RESP 18; O2SAT 97
[2016-04-14] MEDS: HYDROmorphone 1 mg/mL Inj IVPUSH PRN (21:01)
[2016-04-14 21:10] VITALS: BP 155/92; PULSE 95; RESP 17; O2SAT 100
--- NOTE | 2016-04-14 21:10 | NUR ---
Admit Patient transferred to unit at 2110, able to transfer independently to bed and bathroom. A&O able to make needs known, patient was oriented to room by NAC. C/O of persistent abdominal discomfort, however denies CP, and SOB. Last bowel movement was small and on 04/14/16. NPO at this time.
[2016-04-14] MEDS: 0.9% Sodium Chloride 1,000 ML IV SCH (21:29)
[2016-04-14] MEDS ORDERED: PEG/Electrolytes 4,000 mL Solution PO ONE (21:30)
--- NOTE | 2016-04-14 21:56 | PCM.HPMED ---
Subjective Date of Service Apr 14, 2016 Primary Provider: Admitting Physician: Primary Care Physician: Maged Guzman MD Attending Physician: Admit Status: From the Emergency Department, 23-Hour Observation, Remote Telemetry Chief Complaint: Abdominal pain History of Present Illness: Diamond Soliman is a 60 y/o female recurrent Diverticulitis with recent abdominal surgery presenting to [facility] emergency department with c/o increased abdominal pain onset today. The abdominal pain is severe 9/10 intensity, feeling like cat scratches from insider her bowels, location moving around from her stomach down to the lower abdomen. Associated with constipation which is only mildly relieved by laxatives (small BM earlier today), nausea, and vomiting. Last bowel movement was last Tuesday, stools her long and thin with some small about of bright red blood mixed in. Pt denies melena, fever, chills. She is not taking narcotic on a daily basis. She is frustrated as she has tried everything from prune juice, Miralax to Dulcolax with not much success. A week ago she was given Golytely prep but only had a small about of stools The patient was experiencing severe abdominal pain earlier this year which was eventually diagnosed as diverticulitis with bleeding. The patient had a sigmoid colon resection on March 03, [address] Viveros and since then she has been feeling much worse compared to prior to surgery in terms of generalized weakness. Case discussed with Dr Hicks, he spoke to Dr Calix from surgery who recommended admission and they will see patient tomorrow Review of Systems: Pertinent positives as noted in HPI. All other systems were reviewed and are negative Allergies Coded Allergies: latex (Verified Allergy, Intermediate, rash/blisters, 04/16/15) Cultivated Oat Pollen (Verified Allergy, Unknown, 03/02/16) TAPE (Verified Allergy, Unknown, 03/02/16) Home Medications Tizanidine 4 mg 1-2 tabs q 8 hours prn Metoclopramide 5 mg q 4 hours prn Zofran 4 mg q 12 hours prn Oxycodone/APAP 5/325 mg 1 tab q6 hours prn PMH Persistent acute on chronic diverticulitis s/p surgery GERD anemia Insomnia Hyperlipidemia Depression . Surgical History Laparoscopic hand-assisted sigmoid colectomy and takedown of splenic flexure. Cystoscopy and placement of bilateral illuminated ureteral stent. MATIAS and BSO due to fibroids Cholecystectomy Hernia repair Family History Father had Myocardial infarction and Lung cancer Mother had Uterine cancer Paternal uncle had Colon cancer Social History Hx Alcohol Use: No Hx Tobacco Use: No Smoking Status: Never Smoker Living Arrangement: with Family Exam Vital Signs Vital Sign - Last Date Time Temp Pulse Resp B/P Pulse Ox O2 Delivery O2 Flow Rate FiO2 04/14/16 19:14 74 18 157/85 98 Room Air 04/14/16 18:08 36. Exam General: Alert, Oriented X3, Cooperative, No acute Distress Eyes: PERRLA, Scleral Anicteric Mouth: Mouth Normal, Mucous Membranes Moist/[place] Neck: Supple, no Thyromegaly, trachea central. Chest & Lungs: Clear to auscultation & percussion, No adventitious breath sounds, no crackles, no wheeze Cardiovascular: Normal S1, Normal S2, No Murmurs/Rubs/Gallops, Regular Rate/ Rhythm, Murmur, Other (No JVD, no peripheral edema) Pulses: Radial (present and equal), Dorsalis Pedi (present and equal) Abdomen: Soft, Non-tender, Non-distended, Normoactive bowel tones. Musculoskeletal: Unremarkable. Normal range of motion, no swollen or erythematous joints Extremities: No edema, no cyanosis, no clubbing. Skin: No rashes. Warm and dry, no erythematous areas Neurological: Grossly neurologically intact, has generalized weakness, Normal Speech, Sensation Intact Lymphatic: Lymph nodes Cervical and Axillary not palpable. Lab and Diagnostics Labs Laboratory Tests Test 04/14/16 18:30 04/14/16 20:21 04/14/16 20:23 White Blood Count 18.1th/mm3 (3.8-10.1) Red Blood Count 4.41mil/mm3 (3.90-5.20) Hemoglobin 14.0g/dL (12.0-15.6) Hematocrit 42.3% (35.0-46.0) Mean Corpuscular Volume 95.9fL (81-100) Mean Corpuscular Hemoglobin 31.7pg (27.0-35.0) Mean Corpuscular Hemoglobin Concent 33.1% (32.0-37.0) Red Cell Distribution Width 13.5% (12.3-15.4) Platelet Count 348bil/L (150-400) Neutrophils (%) (Auto) 81.7% (40-74) Lymphocytes (%) (Auto) 13.9% (14-46) Monocytes (%) (Auto) 3.4% (4-12) Eosinophils (%) (Auto) 0.5% (0-5) Basophils (%) (Auto) 0.2% (0-3) Sodium Level 139mEq/L (134-144) Potassium Level 4.4mEq/L (3.5-5.2) Chloride Level 99mEq/L (97-108) Carbon Dioxide Level 21mmol/L (18-29) Blood Urea Nitrogen 19mg/dL (8-27) Creatinine 0.91mg/dL (0.57-1.00) Estimat Glomerular Filtration Rate 90mL/min (>59) Glucose Level 175mg/dL (60-99) Calcium Level 9.4mg/dL (8.5-10.1) Magnesium Level 2.1mg/dL (1.6-2.6) Total Bilirubin 0.2mg/dL (0.0-1.2) Aspartate Amino Transf (AST/SGOT) 24U/L (0-50) Alanine Aminotransferase (ALT/SGPT) 17U/L (0-32) Alkaline Phosphatase 94U/L (25-165) Total Protein 7.8g/dL (6.4-8.4) Albumin 4.4g/dL (3.4-5.0) Lipase 27U/L (13-60) Hold Arroyo Top Tube Received (Received) Result Diagram: 04/14/16182904/14/161829 X-Rays, CTs and MRIs CT ABDOMEN AND PELVIS WITH CONTRAST 04/14/16 IMPRESSION: 1. Mild descending colon thickening, consistent with ischemia, infection, or inflammation. The colon is diffusely fluid filled, which may indicate colitis. 2. Appendix not seen. No evidence of appendicitis. 3. No change in small hiatal hernia. Dictated by: Jany Odraz M.D. on 04/14/2016 at 19:30 Approved by: Jany Ordaz M.D. on 04/14/2016 at 19:33 Assessment & Plan Diamond Soliman is a 60 y/o female recurrent Diverticulitis with recent abdominal surgery presenting to [facility] emergency department with c/o increased abdominal pain 1. Acute abdominal pain due to Colitis. Present on admission Etiology unclear but suggests Ischemia, infections or Inflammatory. I wonder if her recent abdominal surgery is related to this colitis - nothing by mouth - continue IV fluids resuscitations - hold off on antibiotics, no diarrhea reported or melena - General surgery consulted - may need a sigmoidoscopy 2. Systemic Inflammatory response. Present on admission Meeting criteria with leukocytosis and tachycardia. No clear infectious source - monitor on telemetry - IV fluids - checking lactic acid 3. Lactic acidosis. Present on admission Due to tissue hypoxia due to colitis - trending levels till normal 4. Recurrent diverticulitis s/p Colectomy CT scan showed no evidence of diverticulitis or abscess - Surgery will follow up - Acetaminophen as needed for mild pain/fever/headache - Bowel regimen as needed - Antiemetic as needed Patient is admitted under observation status with expected length of stay less than 2 midnights due to severity of presenting symptoms, risk of adverse event, and complexity of treatment plan. . Resuscitation Status: CPR: Attempt Resuscitation Sergey Stover MD Apr 14, 2016 20:28
[2016-04-15] VITALS (8 sets, daily range): BP systolic 110–146; BP diastolic 67–80; PULSE 64–81; RESP 16–20; O2SAT 94–100
[2016-04-15] MEDS: Ondansetron 2 mg/mL 2 mL Inj IVPUSH PRN ×4 (01:02→15:16)
[2016-04-15] MEDS: HYDROmorphone 1 mg/mL Inj IVPUSH PRN ×5 (01:03→22:39)
[2016-04-15] MEDS: 0.9% Sodium Chloride 1,000 ML IV SCH ×4 (05:43→23:42)
[2016-04-15 07:28] LABS: BASOPHILS % (AUTO) 0.3 % (0-3); EOSINOPHILS % (AUTO) 0.3 % (0-5); MONOCYTES % (AUTO) 5.2 % (4-12); Mean Corpuscular Hemoglobin 31.3 pg (27.0-35.0); Mean Corpuscular Volume 97.4 fL (81-100); NEUTROPHILS % (AUTO) 70.7 % (40-74); Platelet Count 248 bil/L (150-400)
--- NOTE | 2016-04-15 08:44 | PCM.PNSURG ---
Subjective Visit Information: Reason for Visit Colitis, Dehydration, Leukocystosis Surgery/Surgery Date Post-Op Day # Date of Admission: Apr 14, 2016 at 20:38 Hospital Day # Subjective: Golytely administered overnight with >10 BMs. Leukocytosis resolved. She is concerned about "swollen nodes" in her neck, thyroid function, fatigue. Objective Vital Sign- Last 8 Hours Date Time Temp Pulse Resp B/P Pulse Ox O2 Delivery O2 Flow Rate FiO2 04/15/16 06:26 79 04/15/16 05:34 36.7 70 17 113/69 98 Room Air Intake and Output- Last 8 Hour 04/15/16 Cumulative From/Thru 07:00 04/14/16 18:08 - 04/15/16 05:41 Intake Total 3805 ml 4805 ml Output Total 650 ml 650 ml Balance 3155 ml 4155 ml Intake Oral 2800 ml 2800 ml IV Total 1005 ml 2005 ml Output Urine Total 650 ml 650 ml # Bowel Movements 6 6 General: Alert, Oriented X3, Cooperative Abdomen: Soft, Other (mild tenderness) Result Diagram: 04/15/16 0711 04/14/16 1830 Assessment & Plan Impression 60yof with chronic diverticulitis s/p lap sigmoid colectomy 03/03/16 with constipation, resolved with Golytely overnight. Problems: Plan -OK to discharge from surgical standpoint. I have carefully reviewed her CT scan. Possible inflammation likely secondary to constipation. I do not recommend colonoscopy as it is still early after surgery and her bowel wall may be somewhat more susceptible to complications from procedures. There is no sign of anastomotic leak or other surgical complication. -Recommend double dose of BID Miralax at discharge -Recommend probiotic -F/U in my clinic in 1 week -I ordered thyroid function tests per her concern re: fatigue, hair loss, constipation, and recommended she f/u with PCP regarding results, which she agrees to do. Resuscitation Status: CPR: Attempt Resuscitation Kristi Viveros MD Apr 15, 2016 08:44
[2016-04-15] MEDS: Polyethylene Glycol (PEG) 17 Gm Powder PO SCH ×2 (11:00→20:30)
--- NOTE | 2016-04-15 15:54 | PCM.PNMED ---
Subjective Date of Service Apr 15, 2016 Subjective patient cleared from surgery but symptoms were continued c/o nausea, vomiting, ongoing diffuse abdominal pain, cramps like had watery diarrhea overnight, no actual Stools. pt refused PEG but agreed on taking bowel regimen with pain meds Exam Vital Signs Vital Sign - Last Date Time Temp Pulse Resp B/P Pulse Ox O2 Delivery O2 Flow Rate FiO2 04/15/16 13:33 36.8 72 16 110/70 99 Room Air Intake and Output 04/14/16 04/14/16 04/15/16 Cumulative From/Thru 15:00 23:00 07:00 04/14/16 18:08 - 04/15/16 05:41 Intake Total 1000 ml 3805 ml 4805 ml Output Total 650 ml 650 ml Balance 1000 ml 3155 ml 4155 ml Intake Oral 2800 ml 2800 ml IV Total 1000 ml 1005 ml 2005 ml Output Urine Total 650 ml 650 ml # Bowel Movements 6 6 Exam distressed due to pain no JVD, MMM, no LAD RRR, nl s1, s2 no mrg CTAB, no w,c S,ND, diffuse TD, hypoactive BS warm, no edema, pulses 2/2 IVs and Medications Medications Reviewed: Medications were reviewed in detail Lab and Diagnostics Result Diagram: 04/15/16 0711 04/14/16 1830 X-Rays, CTs and MRIs CT ABDOMEN AND PELVIS WITH CONTRAST 04/14/16 IMPRESSION: 1. Mild descending colon thickening, consistent with ischemia, infection, or inflammation. The colon is diffusely fluid filled, which may indicate colitis. 2. Appendix not seen. No evidence of appendicitis. 3. No change in small hiatal hernia. Dictated by: Jany Ordaz M.D. on 04/14/2016 at 19:30 Approved by: Jany Ordaz M.D. on 04/14/2016 at 19:33 Assessment & Plan Diamond Soliman is a 60 y/o female recurrent Diverticulitis with recent abdominal surgery presenting to [facility] emergency department with c/o increased abdominal pain acute, active #Acute abdominal pain, POA, likely due to chronic ileus, n CT showed colitis. initial tachycardia/wbc rapidly resolved without abx, unlikely infectious etiology. Lactate also resolved. -will continue to manage sx, target BM at least 1-2 with symptom improvement by d/c -continue Miralax bid, senna bid, colace tid, metamucil tid -pain control with dilaudid 1mg q4h prn -zofran for n,v chronic, stable #Recurrent diverticulitis s/p Colectomy, no signs of postsurgical complcations per . surgery >2mo ago. #IgA deficiency, per patient, pt lost follow up with midwife practitioner unlikely related to current presentation given no signs of systemic infection. #GERD, will try PPI #anemia, h/h rapidly dropped likely dillutional, trends for now #Insomnia, #Hyperlipidemia, not on statin, get lipid panel #Depression, given patient non-compliance, patient likely needs more close FU dispo: Within 1-2days when symptomatic improvement made Full Code diet: liquid diet for now . VTE Mechanical Devices: Intermittant Pneumatic CD Resuscitation Status: CPR: Attempt Resuscitation Time spent 35min Toro Sánchez MD Apr 15, 2016 15:54
[2016-04-15] MEDS ORDERED: Pantoprazole 4 mg/mL 10 mL Inj IVPUSH ONE (15:55)
--- NOTE | 2016-04-15 16:02 | NUR ---
Social Work- Brief Note/ Screening Data: EMR reviewed. Pt is on day 1 of hospitalization for colitis per H&P. Pt's insurance is [employer]. Pt's PCP is Maged Conde MD. Pt resides in [place] where she remains independent with her ADLs. Patient has no HHC, SNF, DME history. Pt has no LTC or VA benefits. Pt likely to discharge home with to transport via POV. No anticipated discharge needs. SW will continue to follow. Assessment: [place] Plan: Pt to discharge home with to transport via POV. No anticipated discharge needs. SW continue to follow. MARGO Monteiro
[2016-04-15] MEDS ORDERED: MetoCLOpramide 5 mg/mL 2 mL Inj IVPUSH PRN (16:15)
--- NOTE | 2016-04-15 18:12 | NUR ---
Nausea/Pain/GI Pt still experiencing nausea with 8mg of Zofran. MD notified and Benadryl given. Pt switched from full liquid lunch to clear liquid for dinner. Tolerating Jello with no nausea. Pt c/o headache and stomach cramping uncontrolled with IV Dilaudid. MD notified and dose of Morphine was given. Pt stated that she had no pain after caraballo. Pt up to the bathroom and having loose liquid brown diarrhea.
[2016-04-16 04:26] VITALS: BP 122/71; PULSE 71; RESP 20; O2SAT 98
[2016-04-16 05:09] LABS: Free Thyroxine Index 1.8 (1.2-4.9); Thyroxine (T4) 6.3 ug/dL (4.5-12.0)
[2016-04-16 05:36] VITALS: PULSE 75
--- NOTE | 2016-04-16 06:23 | NUR ---
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 Hourly rounding ongoing.
[2016-04-16] MEDS ORDERED: Pantoprazole 40 mg ER24 Tablet PO SCH (07:30)
[2016-04-16 07:44] LABS: BASOPHILS % (AUTO) 0.4 % (0-3); EOSINOPHILS % (AUTO) 2.1 % (0-5); Mean Corpuscular Hemoglobin 31.3 pg (27.0-35.0); NEUTROPHILS % (AUTO) 48.4 % (40-74); Platelet Count 225 bil/L (150-400)
[2016-04-16 08:00] VITALS: PULSE 81
[2016-04-16 08:08] LABS: Magnesium 1.6 mg/dL (1.6-2.6); Phosphorus 3.5 mg/dL (2.5-4.9)
[2016-04-16] MEDS: Polyethylene Glycol (PEG) 17 Gm Powder PO SCH (08:30)
[2016-04-16] MEDS ORDERED: PANT40TA3 PO (08:39)
[2016-04-16] MEDS ORDERED: SENN-133 PO (08:39)
[2016-04-16] MEDS ORDERED: POLY17PO6 PO (08:39)
[2016-04-16] MEDS ORDERED: Docusate Sodium PO (08:39)
[2016-04-16] MEDS ORDERED: PSYL3.4P5 PO (08:39)
--- NOTE | 2016-04-16 09:09 | PCM.DIMED ---
Discharge Instructions Date of Service Apr 16, 2016 Dates of Hospitalization Apr 14, 2016 at 20:38 Discharge Diagnosis Discharge Diagnosis intractable nausea and vomiting, abdominal pain secondary to severe ileus mild colitis on transverse colon Medication Instructions Please take these Laxatives, and titrate regimen based on your bowel regimen. titrate if your stools are too loose. you can take Colace up to 3 times per day you can take senna up to twice a day, preferably use it for short term, it's usually works better if you take it before bed time You can take Miralax up to twice a day Diet Other (dietatry measures per instructions for constipation) Activity No restrictions Patient Instructions You were hospitalized with intractable nausea vomiting abdominal pain. CT showed signs of inflammation in your colon. It was concerning for possible relation with surgery you had 3 month ago. However, it was more thought to be from constipation. Your symptoms were controlled with aggressive bowel regimen. Please follow medicine instruction as above Please continue dietary measure, reading materials were also given. Please note that given your hx of IgA immunodeficiency, you may require referral to lace roller. Please discuss further with her primary doctor Follow-up plan Please follow-up with your doctor in 2 weeks Follow-up Provider: Maged Conde MD Follow-up with PCP in: 2 weeks Toro Sánchez MD Apr 16, 2016 09:09
--- NOTE | 2016-04-16 11:00 | NUR ---
Social Work- Readiness for Discharge Data: EMR reviewed. Pt is on day 2 of hospitalization for colitis per H&P. Pt is medically stable, anticipate discharge later today. SW followed up with pt and at bedside regarding discharge plan and DPOA. Pt has no DPOA at this time. SW encouraged pt to complete form and bring copy to the hospital. Pt to discharge home with to transport via POV. No anticipated discharge needs. SW will continue to follow. Assessment: [place] Plan: Pt to discharge home with to transport via POV. No anticipated discharge needs. SW will continue to follow. MARGO Monteiro
--- NOTE | 2016-04-16 11:25 | NUR ---
Social Work- Discharge Data: EMR reviewed. Pt is on day 2 of hospitalization for colitis per H&P. Pt to discharge today. Pt to discharge home with to transport via POV. No discharge needs. Assessment: [place]. Plan: Pt to discharge home with to transport via POV. No discharge needs. MARGO Monteiro
--- NOTE | 2016-04-16 12:55 | PCM.DC.MED ---
Discharge Summary Date of Service Apr 16, 2016 Dates of Hospitalization Date of Hospital Admission Apr 14, 2016 at 20:38 Date of Discharge: Apr 16, 2016 Providers: Admitting Physician: Sergey Stover MD Primary Care Physician: Maged Guzman MD Attending Physician: Sergey Stover MD Diagnosis at Time of Discharge Diagnosis at Time of Discharge acute problems Intractable nausea and vomiting, abdominal pain secondary to severe ileus mild colitis on transverse colon acute anemia, likely dillutional chronic problems #Recurrent diverticulitis s/p Colectomy, #hx of IgA immunodeficiency, #GERD #Insomnia #Hyperlipidemia #Depression Consultations Gen surg, Procedures XRay, CTs & MRIs PROCEDURE: CT ABDOMEN AND PELVIS WITH CONTRAST ([id number]) INDICATIONS: abd pain, recent sigmoidectomy TECHNIQUE: After the administration of intravenous contrast, 5 mm thick sections acquired from the diaphragm to the symphysis. 5 mm coronal and sagittal reformats were acquired. For radiation dose reduction, the following was used: automated exposure control, adjustment of mA and/or kV according to patient size. COMPARISON: [facility], CT, CT ABD PELVIS W CON, 11/26/2015, 18:57. FINDINGS: Image quality: Excellent. ABDOMEN: Lung bases: Lung bases are clear. Heart size is normal. Solid organs: Liver and spleen are normal in size and enhancement. Gallbladder is surgically absent. Biliary system is non dilated. Pancreas enhances normally. No adrenal nodules. Kidneys demonstrate normal size and enhancement, without hydronephrosis. Peritoneum and bowel: A small hiatal hernia is present. The colon is mildly diffusely distended, and fluid-filled. There is mild focal thickening of the proximal descending colon. Mild thickening of the remainder of the descending colon. No free fluid or air. Nodes and vessels: No retroperitoneal or mesenteric adenopathy by size criteria. Aorta and inferior vena cava are normal in size. Miscellaneous: No ventral hernias. PELVIS: Genitourinary: Urinary bladder is decompressed. Miscellaneous: No inguinal hernias or adenopathy. Bones: No suspicious bony lesions. No vertebral body compression fractures. IMPRESSION: 1. Mild descending colon thickening, consistent with ischemia, infection, or inflammation. The colon is diffusely fluid filled, which may indicate colitis. 2. Appendix not seen. No evidence of appendicitis. 3. No change in small hiatal hernia. Dictated by: Jany Ordaz M.D. on 04/14/2016 at 19:30 Approved by: Jany Ordaz M.D. on 04/14/2016 at 19:33 Brief History HPI obtained 04/14 Diamond Soliman is a 60 y/o female recurrent Diverticulitis with recent abdominal surgery presenting to [facility] emergency department with c/o increased abdominal pain onset today. The abdominal pain is severe 9/10 intensity, feeling like cat scratches from insider her bowels, location moving around from her stomach down to the lower abdomen. Associated with constipation which is only mildly relieved by laxatives (small BM earlier today), nausea, and vomiting. Last bowel movement was last Tuesday, stools her long and thin with some small about of bright red blood mixed in. Pt denies melena, fever, chills. She is not taking narcotic on a daily basis. She is frustrated as she has tried everything from prune juice, Miralax to Dulcolax with not much success. A week ago she was given Golytely prep but only had a small about of stools The patient was experiencing severe abdominal pain earlier this year which was eventually diagnosed as diverticulitis with bleeding. The patient had a sigmoid colon resection on March 03, [address] Viveros and since then she has been feeling much worse compared to prior to surgery in terms of generalized weakness. Case discussed with Dr Hicks, he spoke to Dr Calix from surgery who recommended admission and they will see patient tomorrow Hospital Course Diamond Soliman is a 60 y/o female recurrent Diverticulitis with recent abdominal surgery presenting to [facility] emergency department with c/o increased abdominal pain acute problems 1.Acute abdominal pain, likely due to chronic ileus,CT showed signs of colitis. initial pt was tachycardia with leukocytosis, but rapidly resolved without abx, unlikely infectious etiology. Lactate also resolved. patient was seen by given concern for relatively recent surgery in . concluded that this is non surgical problems, no complications from surgery. Patient was started on PEG. tried Miralax bid, senna bid, colace tid, metamucil tid. Given patient's severe cramps, pain control with dilaudid 1mg q4h prn given with zofran for n,v. Patient eventually was able to pass liquid stools, symptoms were greatly resolved, didn't require opioid, deemed safe for d/c. Dietary precaution and combination with, aggressive laxatives were strongly encouraged to prevent future episode. Patient/ seemed to understand. chronic problems #Recurrent diverticulitis s/p Colectomy, no signs of postsurgical complcations per . surgery >2mo ago. #IgA deficiency, per patient, pt lost follow up with pin inserter regulator unlikely related to current presentation given no signs of systemic infection. recommend OP follow up #GERD, PPI was given #anemia, h/h rapidly dropped likely dillutional, remained stable #Insomnia, stable #Hyperlipidemia, diet controlled #Depression, not on meds . Exam Vital Signs (Last) Date Time Temp Pulse Resp B/P Pulse Ox O2 Delivery O2 Flow Rate FiO2 04/16/16 08:00 81 04/16/16 04:26 36.8 20 122/71 98 Room Air Exam NAD, comfortably laying down on the bed no JVD, MMM, no LAD RRR, nl s1, s2 no mrg CTAB, no w,c S,ND,minimal TD, hypoactive BS+ warm, no edema, pulses 2/2 Test 04/14/16 18:30 04/14/16 20:21 04/14/16 20:23 04/15/16 00:40 Lipase 27U/L (13-60) Hold [place] Tube Received (Received) Hold Urine Received (Received) Urine Color Yellow (YELLOW) Urine Appearance Hazy (CLEAR,HAZY) Urine pH 7.0 (5.0-8.0) Urine Specific [place] 1.005 (1.003-1.035) Urine Protein Negativemg/dL (NEG,TRACE) Urine Glucose (UA) Negativemg/dL (NEGATIVE) Urine Ketones Negativemg/dL (NEGATIVE) Urine Occult Blood Negative (NEGATIVE) Urine Nitrite Negative (NEGATIVE) Urine Bilirubin Negative (NEGATIVE) Urine Urobilinogen Normalmg/dL (NORMAL) Urine Leukocyte Esterase Negative (NEGATIVE) Urine RBC 0-2/hpf (0-2) Urine WBC 0-5/hpf (0-5) Urine Epithelial Cells Occasional/hpf (NONE-MOD) Urine Crystals None seen (NONE SEEN) Urine Bacteria Few/hpf (NONE-FEW) Urine Hyaline Casts None/lpf (NONE) Urine Granular Casts None seen (NONE SEEN) Urine Waxy Casts None seen (NONE SEEN) Urine Red Blood Cell Casts None seen (NONE SEEN) Urine White Blood Cell Casts None seen (NONE SEEN) Urine Mucus Present (None Seen) Urine Trichomonas None seen (NONE SEEN) Urine Yeast None (NONE SEEN) Urinalysis Comment None Urine Culture Reflexed Not indicated Procalcitonin 0.06ng/mL (0.00-0.08) Test 04/15/16 04:30 04/15/16 07:11 04/15/16 16:26 04/16/16 07:17 Lactic Acid Level 1.9mmol/L (0.4-2.0) Thyroid Stimulating Hormone (TSH) 4.310uIU/mL (0.450-4.500) Free Thyroxine Index 1.8 (1.2-4.9) Thyroxine (T4) 6.3ug/dL (4.5-12.0) Triiodothyronine (T3) Uptake 29% (24-39) Triglycerides Level 77mg/dL (0-149) Cholesterol Level 208mg/dL (100-199) LDL Cholesterol, Calculated 134.600mg/dL (0-99) VLDL Cholesterol 15.400mg/dL HDL Cholesterol 58mg/dL (>39) Cholesterol/HDL Ratio 3.59 (0.0-4.4) White Blood Count 5.1th/mm3 (3.8-10.1) Red Blood Count 3.32mil/mm3 (3.90-5.20) Hemoglobin 10.4g/dL (12.0-15.6) Hematocrit 32.2% (35.0-46.0) Mean Corpuscular Volume 97.0fL (81-100) Mean Corpuscular Hemoglobin 31.3pg (27.0-35.0) Mean Corpuscular Hemoglobin Concent 32.3% (32.0-37.0) Red Cell Distribution Width 13.7% (12.3-15.4) Platelet Count 225bil/L (150-400) Neutrophils (%) (Auto) 48.4% (40-74) Lymphocytes (%) (Auto) 42.9% (14-46) Monocytes (%) (Auto) 6.0% (4-12) Eosinophils (%) (Auto) 2.1% (0-5) Basophils (%) (Auto) 0.4% (0-3) Sodium Level 140mEq/L (134-144) Potassium Level 3.5mEq/L (3.5-5.2) Chloride Level 106mEq/L (97-108) Carbon Dioxide Level 23mmol/L (18-29) Blood Urea Nitrogen 3mg/dL (8-27) Creatinine 0.59mg/dL (0.57-1.00) Estimat Glomerular Filtration Rate 148mL/min (>59) Glucose Level 97mg/dL (60-99) Calcium Level 8.1mg/dL (8.5-10.1) Phosphorus Level 3.5mg/dL (2.5-4.9) Magnesium Level 1.6mg/dL (1.6-2.6) Total Bilirubin 0.3mg/dL (0.0-1.2) Aspartate Amino Transf (AST/SGOT) 17U/L (0-50) Alanine Aminotransferase (ALT/SGPT) 11U/L (0-32) Alkaline Phosphatase 58U/L (25-165) Total Protein 5.1g/dL (6.4-8.4) Albumin 3.3g/dL (3.4-5.0) Discharge Medications Discharge Medications ([Docusate Sodium]) 250 MG CAPSULE 250 MG PO TID Prescribed by: TORO KAISER MD Aspirin/Acetaminophen/Caffeine (Aymzqiz-Jbbkspmdurlia-Ukxf Tab) 250 Mg-250 Mg- 65 Mg Tablet 2 EACH PO DAILY (Reported) Cyanocobalamin (Vitamin B12) 500 Mcg Tablet 1,000 MCG PO DAILY (Reported) Multivitamin/Iron/Folic Acid (Centrum Complete Multivit Tab) 1 Each Tablet 1 EACH PO DAILY (Reported) Pantoprazole (Pantoprazole DR) 40 Mg Tablet.dr 40 MG PO DAILYAC Prescribed by: TORO KAISER MD Polyethylene Glycol 3350 (Miralax) 17 Gm Powd.pack 17 GM PO BID Prescribed by: TORO KAISER MD Psyllium Husk/Aspartame (Metamucil Fiber Singles Packet) 3.4 Gm Powd.pack 1 PACKET PO TIDWM Prescribed by: TORO KAISER MD Sennosides (Senna) 8.6 Mg Tablet 17.2 MG PO BID Prescribed by: TORO KAISER MD Additional med instructions Please take these Laxatives, and titrate regimen based on your bowel regimen. titrate if your stools are too loose. you can take Colace up to 3 times per day you can take senna up to twice a day, preferably use it for short term, it's usually works better if you take it before bed time You can take Miralax up to twice a day Followup Plan Disposition: home Follow-up plan Please follow-up with your doctor in 2 weeks Discharge Diet: Other (dietatry measures per instructions for constipation) Discharge Activity: No restrictions Patient Instructions You were hospitalized with intractable nausea vomiting abdominal pain. CT showed signs of inflammation in your colon. It was concerning for possible relation with surgery you had 3 month ago. However, it was more thought to be from constipation. Your symptoms were controlled with aggressive bowel regimen. Please follow medicine instruction as above Please continue dietary measure, reading materials were also given. Please note that given your hx of IgA immunodeficiency, you may require referral to pin inserter regulator. Please discuss further with her primary doctor Follow-up Provider: Maged Conde MD Follow-up with PCP in: 2 weeks Time spent 65min Toro Kaiser MD Apr 16, 2016 11:38
--- NOTE | 2016-04-16 16:55 | NUR ---
Discharge Patient discharged home with spouse. Pt given verbal and written home care instructions and agreed to understanding them.Pt will follow up with Dr as requested. hard copy of scripts given to patient.
== END 2016-04-16 12:30 | disposition home or self-care (01) ==
LOC: SED 17:56 → OSC 20:38 → INTOOBSV 20:38 → OSC 21:05
PROVIDERS: ADMIT Hospitalist; ATTEND Hospitalist
DX: R11.2 Nausea with vomiting, unspecified (principal); R10.9 Unspecified abdominal pain; K52.9 Noninfective gastroenteritis and colitis, unspecified; D64.9 Anemia, unspecified; K57.92 Diverticulitis of intestine, part unspecified, without perforation or abscess without bleeding; D80.2 Selective deficiency of immunoglobulin A [IgA]; K21.9 Gastro-esophageal reflux disease without esophagitis; G47.00 Insomnia, unspecified; E78.5 Hyperlipidemia, unspecified; F32.9 Major depressive disorder, single episode, unspecified; J44.9 Chronic obstructive pulmonary disease, unspecified; M19.90 Unspecified osteoarthritis, unspecified site; Z90.49 Acquired absence of other specified parts of digestive tract; Z79.82 Long term (current) use of aspirin
CPT/HCPCS: 36415; 74177; 80053; 80061; 81000; 82308; 83605; 83690; 83735; 84100; 84436; 84443; 84479; 85025; 96361; 96374; 96375; 96376; 99285; G0378; J1170; J1200; J2270; J2405; J7030; Q9967